=== PATIENT | male | born 1960 | race Caucasian/White ===

== ENCOUNTER 2019-02-10 13:50 | Emergency (ER) | payer MEDICARE ==
[2019-02-10 14:14] VITALS: BP 123/71
--- NOTE | 2019-02-10 14:42 | UC ---
Knee Pain HPI - HPI Summary HPI Summary: 58 yo male presents with LEFT knee bruising. He tells me that yesterday he was doing a lot of heavy lifting and bending. Today noticed some swelling and bruising at the posteromedial aspect of his left knee - he thinks he strained his knee. He was talking to a friend and his friend made him concerned about a DVT - pt is here requesting an ultrasound for DVT. He has no pain, denies specific injury, no numbness or tingling. Ambulating without difficulty - History of Current Complaint Chief Complaint: UCLowerExtremity Stated Complaint: KNEE INJURY Time Seen by Provider: 02/10/19 14:42 Hx Obtained From: Patient Onset/Duration: Sudden Onset Severity Initially: Mild Severity Currently: Mild Pain Intensity: 2 Pain Scale Used: 0-10 Numeric - Allergies/Home Medications Allergies/Adverse Reactions: Allergies Allergy/AdvReac Type Severity Reaction Status Date / Time No Known Allergies Allergy Verified 02/10/19 14:14 Home Medications: Home Medications Melatonin [Ra Melatonin] 30 mg PO 02/10/19 [History] PMH/Surg Hx/FS Hx/Imm Hx - Additional Past Medical History Additional PMH: None - Surgical History Surgical History: Yes Surgery Procedure, Year, and Place: RT SHOULDER -2012, 2011 - [facility], [place]. KNEE SURGERY - 2011 [facility]. ACL RT KNEE [place] 10 YRS [place] [facility] [place]LEFT CARPAL TUNNEL RELEASE- [facility] - Family History Known Family History: Positive: Non-Contributory Negative: Blood Disorder - Social History Occupation: Employed Full-time Lives: With Family Alcohol Use: Daily Substance Use Type: Marijuana Substance Use Comment - Amount & Last Used: few times a week Smoking Status (MU): Light Every Day Tobacco Smoker Type: Cigarettes Amount Used/How Often: PACK A DAY When Did the Patient Quit Smoking/Using Tobacco: 06/2013 - Immunization History Most Recent Influenza Vaccination: FALL 2012 Most Recent Tetanus Shot: UNKNOWN Most Recent Pneumonia Vaccination: NEVER Review of Systems All Other Systems Reviewed And Are Negative: No Constitutional: Positive: Negative Skin: Positive: Negative Respiratory: Positive: Negative Cardiovascular: Positive: Negative Neurovascular: Positive: Negative Musculoskeletal: Positive: Other: - Left posterior knee bruising Neurological: Positive: Negative Psychological: Positive: Negative Physical Exam - Summary Physical Exam Summary: GENERAL: NAD. WDWN. No pain distress. SKIN: No rashes, sores, lesions, or open wounds. CHEST: No accessory muscle use. Breathing comfortably and in no distress. CV: Pulses intact popliteal, PT, and DP. Cap refill <2seconds MSK: LEFT KNEE: Mild edema and ecchymosis at posteromedial aspect. NTTP. No nodule appreciated. FROM without pain. Strength 5/5. Negative valentin sign NEURO: Alert. Sensations intact and symmetric B/L LEs PSYCH: Age appropriate behavior. Triage Information Reviewed: Yes Vital Signs: Initial Vital Signs Temp 97.9 F 02/10/19 14:10 Pulse 84 02/10/19 14:10 Resp 18 02/10/19 14:10 BP 123/71 02/10/19 14:10 Pulse Ox 99 02/10/19 14:10 Vital Signs Reviewed: Yes Diagnostics - Radiology US leg Radiology Interpretation Completed By: Radiologist Summary of Radiographic Findings: IMPRESSION: NO EVIDENCE FOR DEEP VENOUS THROMBOSIS. Knee Pain Course/Dx - Course Course Of Treatment: US as above. Suspect knee sprain/contusion. Advised to rest, ice, and elevate his knee. If symptoms worsen or do not improve to be rechecked within 1 week - Differential Dx/Diagnosis Provider Diagnosis: Knee strain Discharge ED - Sign-Out/Discharge Documenting (check all that apply): Patient Departure All imaging exams completed and their final reports reviewed: Yes - Discharge Plan Condition: Stable Disposition: HOME Patient Education Materials: Contusion in Adults (ED) Referrals: Alex Castillo MD [Primary Care Provider] - Additional Instructions: If you develop a fever, shortness of breath, chest pain, new or worsening symptoms - please call your PCP or go to the ED immediately. Your ultrasound today did not show any blood clot. I suspect the bruised area is from a strain of your knee. Please rest, ice, and elevate your knee to decrease pain and bruising. - Billing Disposition and Condition Condition: STABLE Disposition: Home
== END 2019-02-10 15:55 | disposition home or self-care (01) ==
LOC: UCEAST 13:50
DX: S86.812A Strain of other muscle(s) and tendon(s) at lower leg level, left leg, initial encounter (principal); S80.02XA Contusion of left knee, initial encounter; F17.210 Nicotine dependence, cigarettes, uncomplicated; X50.0XXA Overexertion from strenuous movement or load, initial encounter; Y92.9 Unspecified place or not applicable
CPT/HCPCS: 99211; G0463

== ENCOUNTER 2019-11-26 12:23 | Observation (INO) ==
[2019-11-26 13:37] LABS: ABS Basophils 0.1 10^3/ul (0-0.2); ABS Eosinophils 0.4 10^3/ul (0-0.6); ABS Lymphocytes 2.6 10^3/ul (1.0-4.8); ABS Monocytes 1.2 10^3/ul (0-0.8); ABS Neutrophils 4.4 10^3/ul (1.5-7.7); Eosinophil % 4.1 %; Hematocrit 35 % (42-52); Lymphocyte % 30.6 %; Mean Corpuscular HGB Conc 35 g/dL (31-36); Mean Corpuscular Hemoglobin 31 pg (27-31); Mean Corpuscular Volume 90 fL (80-94); Mean Platelet Volume 7.2 fL (7.4-10.4); Nucleated Red Blood Cells % 0.2; Platelet Count 181 10^3/uL (150-450); Red Blood Count 3.88 10^6 /uL (4.18-5.48); Red Cell Distribution Width 18 % (10-15); White Blood Count 8.6 10^3/uL (3.5-10.8)
[2019-11-26 13:56] LABS: Albumin/Globulin Ratio 0.9 (1-3); BUN/Creatinine Ratio 27.4 (8-20); Calcium 10.7 mg/dL (8.6-10.3); EGFR African American 24.1 (>60); EGFR Non-African American 19.9 (>60); Globulin 4.5 g/dL (2-4); Magnesium 2.2 mg/dL (1.9-2.7); Total Bilirubin 0.5 mg/dL (0.2-1.0); Total Protein 8.5 g/dL (6.4-8.9)
[2019-11-26 14:00] LABS: Potassium 5.3 mmol/L (3.5-5.0)
[2019-11-26] MEDS ORDERED: NS 0.9% 1000 ml BAG 1,000 ML IV ONE (14:23)
[2019-11-26] MEDS ORDERED: Al Hydrox/Mg Hydrox/Simet LIQ 30 ML UDC PO PRN (16:22)
[2019-11-26] MEDS ORDERED: Dextrose 50% Syringe 50 ml 25 GM/50 ML SYRINGE IV PUSH PRN (16:25)
[2019-11-26] MEDS ORDERED: NS 0.9% 1000 ml BAG 1,000 ML IV SCH (16:30)
[2019-11-26 18:00] LABS: Urine Appearance Clear; Urine Bilirubin Negative (Negative); Urine Blood Negative (Negative); Urine Color Yellow; Urine Glucose Negative (Negative); Urine Ketones Negative (Negative); Urine Nitrite Negative (Negative); Urine Protein Negative (Negative); Urine Specific Gravity 1.006 (1.010-1.030); Urine Urobilinogen Negative (Negative)
[2019-11-27 06:40] LABS: BUN/Creatinine Ratio 32.4 (8-20); Calcium 9.1 mg/dL (8.6-10.3); EGFR African American 38.1 (>60); EGFR Non-African American 31.4 (>60); Potassium 4.8 mmol/L (3.5-5.0)
[2019-11-27 11:19] VITALS: BP 110/60
== END 2019-11-27 10:50 | disposition home or self-care (01) ==
LOC: ED 12:23 → MED 16:22 → INTOOBSV 16:22 → MED 17:43
PROVIDERS: ADMIT Internal Medicine; ATTEND Internal Medicine